=== PATIENT | male | born 1990 | race Caucasian/White ===

== ENCOUNTER 2016-08-01 13:52 | Emergency (ER) | payer OTHER ==
[2016-08-01 13:57] VITALS: TEMP 98.1; BMI 23.0
[2016-08-01] MEDS ORDERED: MAG HYDROX/AL HYDROX/SIMETH 30 ML UNIT-DOSE CUP PO ONE (15:17)
[2016-08-01] MEDS ORDERED: MAG HYDROX/AL HYDROX/SIMETH 30 ML UNIT-DOSE CUP ONE (15:22)
[2016-08-01 16:37] LABS: URINE APPEARANCE CLEAR; URINE BILIRUBIN NEGATIVE (NEGATIVE); URINE BLOOD NEGATIVE (NEGATIVE); URINE COLOR YELLOW; URINE GLUCOSE (UA) NEGATIVE (NEGATIVE); URINE KETONE NEGATIVE (NEGATIVE); URINE LEUK ESTERASE NEGATIVE (NEGATIVE); URINE NITRITE NEGATIVE (NEGATIVE); URINE PROTEIN NEGATIVE (NEGATIVE); URINE UROBILINOGEN NEGATIVE E.U./dl (0.2-1.0)
--- NOTE | 2016-08-01 16:39 | PDOC ---
History of Present Illness - General Chief Complaint: Pain Stated Complaint: ABD PAIN Time Seen by Provider: 08/01/16 14:56 History Source: Patient Exam Limitations: Language Barrier - History of Present Illness Initial Comments: 08/01/16 16:33 HPI: This 25 year old male presents with his with c/o epigastric and RLQ pain that began yesterday. He states he did not have nausea or vomiting, No fever, no diarrhea. Last BM 3 am, last oral intake last evening and last alcoholic beverage was 3 beers 6 days ago. Chief Compliant:abd pain Pain location:epigastric and rlq pain Duration:24 hours Modifying factors:none, did not take any meds for this Quality:02/12 Radiating:epigastric to rlq Severity:cramp and burning like Time:constant PMH: denies FH: Pt has not recently traveled outside the country in the last 30 days. Pt has not been in contact with people who have traveled out of the country, in contact with people who have been ill with fever, n, v, d. SH: smoking use: NONE illicit drug use: NONE alcohol use: social employment/educational status: sexual history: PSH: denies Home med use noted on SEP Allergies:nka Immunizations: PCP: does not have one Past History - Past Medical History Allergies/Adverse Reactions: Allergies Allergy/AdvReac Type Severity Reaction Status Date / Time No Known Allergies Allergy Verified 08/01/16 13:57 Home Medications: Ambulatory Orders NK [No Known Home Medication] 08/01/16 - Psycho/Social/Smoking Cessation Hx Suicidal Ideation: No Smoking History: Never smoked Information on smoking cessation initiated: No Hx Alcohol Use: No Drug/Substance Use Hx: No Substance Use Type: None Review of Systems - Review of Systems Able to Perform ROS?: Yes Comments:: 08/01/16 16:39 General statement: abd pain since yesterday Hematology: neg history of bleeding/blood thinners Skin: Neg for lesions, rash, bruising. HEENT: Neg symptoms Respiratory: Neg SOB or difficulty in breathing Cardiac: Neg chest pain GI:+ pain, without n/v : Neg problems on voiding MS: Neg for joint pain/stiffness, no edema Neuro: Neg for LOC, weakness, Endocrine: Neg for excess thirst/hunger, cold/heat intolerance, excess sweating Allergies: Neg for allergies *Physical Exam - Vital Signs Last Vital Signs Temp Pulse Resp BP Pulse Ox 98.1 F 87 18 132/87 98 08/01/16 13:55 08/01/16 13:55 08/01/16 13:55 08/01/16 13:55 08/01/16 13:55 - Physical Exam Comments: 08/01/16 16:39 General Appearance: This well appearing 25 year old male who does not appear to be in distress V/S: hemodynamically stable, afebrile Skin: WNL of pt's skin color, no signs of pallor, mottling, cyanosis Head:symmetrical Eyes: EOM's intact, PERRLA Ears: denies pain Nose: patent Throat: lips, teeth, gums, tongue, buccal mucos pink and moist Lungs: Chest symmetry equal. Cap refill <3 seconds. Lung sounds clear Cardiac: PMI at R 4MCL space, pos S1 and S2, regular rate. Abdomen: Soft, round, + mild epigastric and right LQ tender : Not observed Muscularskeletal: Gait steady, ambulated in to ER, no edema +PMS Neuro: AAOx3, cognitively intact, speech clear and appropriate. ED Treatment Course - LABORATORY CBC & Chemistry Diagram: 08/01/16 16:50 08/01/16 16:50 - RADIOLOGY Radiology Studies Ordered: Category Date Time Status ABDOMEN-KUB FLAT PLATE [RAD] Stat Radiology 08/01/16 15:16 Completed ABDOMEN US [US] Stat Ultrasound 08/01/16 15:16 Taken - Medications Given in the ED: ED Medications Discontinued Medications Generic Name Dose Route Start Last Admin Trade Name Freq PRN Reason Stop Dose Admin Al Hydroxide/Mg Hydroxide 30 ml 08/01/16 15:17 08/01/16 15:30 Mylanta Oral Suspension - PO 08/01/16 15:18 30 ml ONCE ONE Administration Medical Decision Making - Medical Decision Making 08/01/16 16:40 Pt seen and examined. Pt with mild tenderness to the epigastric and rlq pain. A/P 1. abd u/s 2. ua 3. mylanta for poss mild heartburn. 4. AXR to r/o constipation 08/01/16 16:48 Pt abd xray does not reveal any fecal containment however there are noted to have several opacity density throughout colon that are questionable. Spoke with Dr. Hankins regarding findings and suggest CT for evaluation. Labs and CT ordered. 08/01/16 18:36 Laboratory Tests 08/01/16 08/01/16 16:50 16:50 WBC 7.5 Hgb 15.9 Hct 45.9 Plt Count 208 Sodium 138 Potassium 4.3 Chloride 102 Carbon Dioxide 27 Anion Gap 9 BUN 17 Creatinine 1.0 Random Glucose 90 Labs complete and noted. Abd u/s without any abnormal findings. Pt in for Abd /pelvic iv contrast I am signing this patient out to my colleague: JEROD Pozo In brief, this patient is being seen in the ED for a chief complaint of: abd pain epigastric and right lower quad I have completed the initial assessment interview note and have ordered:abd pelvic ct with iv contrast only due to the finding of opacities in the abd that are suspicious but not obstructive. I have reviewed the following results: abd u/s and abd xray Pending results are: ct of abd Please call the PCP: does not have one Plan for disposition is as follows: probable discharge home. *DC/Admit/Observation/Transfer Diagnosis at time of Disposition: Abdominal pain Qualifiers: Abdominal location: epigastric Qualified Code(s): R10.13 - Epigastric pain
[2016-08-01 17:24] LABS: BASOPHIL 0.3 % (0-2.0); EOSINOPHIL 0.2 % (0-4.5); MCH 29.4 pg (25.7-33.7); MCHC 34.7 g/dl (32.0-35.9); MEAN PLT VOLUME 8.9 fl (7.5-11.1); NEUTROPHILS 80.8 % (42.8-82.8); PLATELET COUNT 208 K/MM3 (134-434); RDW 13.2 % (11.9-15.9); WHITE BLOOD COUNT 7.5 K/mm3 (4.0-10.0)
[2016-08-01 17:59] LABS: ALBUMIN 4.5 g/dl (3.4-5.0); ALK PHOS 90 U/L (45-117); ANION GAP 9 (8-16); BILIRUBIN,TOTAL 0.5 mg/dL (0.2-1.0); CALCIUM 8.9 mg/dL (8.5-10.1); CO2 27 mmol/L (21-32); GLUCOSE,RANDOM 90 mg/dL (74-106); SGOT/AST 12 U/L (15-37); SGPT/ALT 22 U/L (12-78); TOT PROT 7.9 g/dl (6.4-8.2)
[2016-08-01 20:44] VITALS: BP 107/66; PULSE 72
--- NOTE | 2016-08-01 20:54 | PDOC ---
*Physical Exam - Vital Signs Last Vital Signs Temp Pulse Resp BP Pulse Ox 98.1 F 72 18 107/66 98 08/01/16 13:55 08/01/16 20:43 08/01/16 20:43 08/01/16 20:43 08/01/16 20:43 ED Treatment Course - LABORATORY CBC & Chemistry Diagram: 08/01/16 16:50 08/01/16 16:50 - ADDITIONAL ORDERS Additional order review: Laboratory Results 08/01/16 08/01/16 16:50 15:15 Sodium 138 Potassium 4.3 Chloride 102 Carbon Dioxide 27 Anion Gap 9 BUN 17 Creatinine 1.0 Creat Clearance w eGFR > 60 Random Glucose 90 Calcium 8.9 Total Bilirubin 0.5 AST 12 L ALT 22 Alkaline Phosphatase 90 Total Protein 7.9 Albumin 4.5 Urine Color Yellow Urine Appearance Clear Urine pH 5.0 Ur Specific [place] 1.025 Urine Protein Negative Urine Glucose (UA) Negative Urine Ketones Negative Urine Blood Negative Urine Nitrite Negative Urine Bilirubin Negative Urine Urobilinogen Negative Ur Leukocyte Esterase Negative 08/01/16 16:50 RBC 5.40 MCV 85.0 MCHC 34.7 RDW 13.2 MPV 8.9 Neutrophils % 80.8 Lymphocytes % 10.9 Monocytes % 7.8 Eosinophils % 0.2 Basophils % 0.3 - Medications Given in the ED: ED Medications Discontinued Medications Generic Name Dose Route Start Last Admin Trade Name Freq PRN Reason Stop Dose Admin Al Hydroxide/Mg Hydroxide 30 ml 08/01/16 15:17 08/01/16 15:30 Mylanta Oral Suspension - PO 08/01/16 15:18 30 ml ONCE ONE Administration Progress Note - Progress Note Progress Note: CT OF ABD AND PELVIS NORMAL. DISCUSSED WITH PATIENT THE NEED TO FOLLOW UP WITH [facility]STR[facility]. PATIENT VERBALIZED UNDERSTANDING. PATIENT INSTRUCTED TO RETURN IF SYMPTOMS BECOME WORSE. *DC/Admit/Observation/Transfer Diagnosis at time of Disposition: Pain in the abdomen Qualifiers: Abdominal location: epigastric Qualified Code(s): R10.13 - Epigastric pain - Discharge Dispostion Disposition: HOME Condition at time of disposition: Stable Admit: No - Prescriptions Prescriptions: Oxycodone HCl/Acetaminophen [Percocet 5-325 mg Tablet] 1 tab PO Q6H PRN #20 tablet MDD 4 TABS PRN Reason: Severe Pain - Referrals Referrals: Carmelo Kumar MD [Staff Physician] - - Patient Instructions Printed Discharge Instructions: DI for Abdominal Pain-Adult Additional Instructions: SEGUIMIENTO CON DOCTOR KUMAR PRXIMA SEMANA. LLAMAR PARA CALIFICAR LA VIK[place]. CHI, SEGUIMIENTO CON TERAN PROVEEDOR DE CUIDADO PRIMARIO. BEBER GLENN AGUA. [place] [facility] TRENT SE PRESCRIBE. VUELVA SI ADRIANA SNTOMAS SE PONDRAN, O CUALQUIER PREOCUPACIN PARA ROBER EVALUACIN ADICIONAL. NO CONDUZCA, ROSIE ALCOHOL , NI OPERE MAQUINAS PESADAS MIENTRAS TERRI PERCOCET PARA DOLOR DORIS. FOLLOW UP WITH DOCTOR KUMAR EARLY NEXT WEEK. CALL TO SCHEDULE APPOINTMENT. ALSO , FOLLOW UP WITH YOUR PRIMARY CARE PROVIDER. DRINK LOTS OF WATER. TAKE MEDICATIONS PRESCRIBED. RETURN IF YOUR SYMPTOMS BECOME WORSE, OR ANY CONCERNS FOR FURTHER EVALUATION. DO NOT DRIVE, DRINK ALCOHOL, OR OPERATE HEAVY MACHINERY WHILE TAKING PERCOCET FOR SEVERE PAIN. Print Language: [id number]
== END 2016-08-01 21:02 | disposition home or self-care (01) ==
LOC: JER 13:52
DX: R10.13 Epigastric pain (principal)
CPT/HCPCS: 36415; 74000-TC; 74177-TC; 76700-TC; 80053; 81003; 85025; 99283-25